=== PATIENT | female | born 2000 | race Caucasian/White ===

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

== ENCOUNTER 2022-10-09 00:09 | Emergency (ER) | payer BC, MEDICAID ==
[~2022-10-09] VITALS: Ht 160 cm; Wt 59.0 kg
[2022-10-09 00:26] VITALS: BP 111/77
--- NOTE | 2022-10-09 00:30 | NUR ---
TO BED AMBULATORY
[2022-10-09] MEDS ORDERED: NACL 0.9% 1,000 ML IV SCH (00:35)
[2022-10-09] MEDS ORDERED: ONDANSETRON 4 MG/2 ML VIAL IVP ONE (00:35)
[2022-10-09] MEDS ORDERED: ONDANSETRON 4 MG/2 ML VIAL ONE (00:38)
[2022-10-09 00:57] LABS: BASOPHILS # (AUTO) 0.1 K/uL (0.00-0.22); BASOPHILS % (AUTO) 0.8 % (0.0-2.0); EOSINOPHILS # (AUTO) 0.1 K/uL (0-0.4); EOSINOPHILS % (AUTO) 1.5 % (0.0-4.0); HEMOGLOBIN 10.4 g/dL (12.0-16.0); LYMPHOCYTES # (AUTO) 1.8 K/uL (2.5-16.5); LYMPHOCYTES % (AUTO) 23.4 % (20.5-51.1); MEAN CORPUSCULAR HEMOGLOBIN 23 pg (27-31); MEAN CORPUSCULAR HGB CONC 31 g/dL (33-37); MEAN CORPUSCULAR VOLUME 74.4 fL (80-94); MONOCYTES # (AUTO) 0.9 K/uL (0.8-1.0); NEUTROPHILS # (AUTO) 4.9 K/uL (1.8-7.7); NEUTROPHILS % (AUTO) 62.3 % (42.2-75.2); PLATELET COUNT (AUTO) 271 K/uL (140-450); RED BLOOD CELL COUNT(AUTO) 4.44 MIL/uL (4.20-5.40); RED CELL DISTRIBUTION WIDTH 16.6 % (11.6-13.7); WHITE BLOOD COUNT (AUTO) 7.8 K/uL (4.8-10.8)
[2022-10-09 01:13] LABS: ALBUMIN 3.2 g/dL (3.4-5.0); ANION GAP 10.1 (8-16); CARBON DIOXIDE 27.3 mmol/L (21-32); CREATININE 0.6 mg/dL (0.6-1.3); POTASSIUM 3.4 mmol/L (3.5-5.1); TOTAL BILIRUBIN 0.2 mg/dL (0.0-1.0)
[2022-10-09 01:20] LABS: APPEARANCE,URINE CLEAR (CLEAR); BILIRUBIN,URINE NEGATIVE (NEGATIVE); BLOOD, URINE 3+ (NEGATIVE); COLOR,URINE YELLOW (YELLOW); LEUKOCYTE ESTERASE ,URINE NEGATIVE (NEGATIVE); NITRITE, URINE NEGATIVE (NEGATIVE); UGLUCOSE NEGATIVE (NEGATIVE)
--- NOTE | 2022-10-09 01:24 | NUR ---
Dr. Shelley examining patient.
--- NOTE | 2022-10-09 01:25 | NUR ---
Patient lying in bed, A/Ox4, chest rise and fall symmetrical, no s/s of distress. Addendum: 10/09/22 at 0628 by [id number] Patient lying in bed, A/Ox4, chest rise and fall symmetrical, no s/s of distress, patient on monitor.
[2022-10-09 01:28] LABS: WBC,URINE 0-5 /HPF (0-5)
--- NOTE | 2022-10-09 01:46 | NUR ---
PT TAKEN TO CT
--- NOTE | 2022-10-09 01:57 | NUR ---
PT RETURN FROM CT
--- NOTE | 2022-10-09 02:10 | NUR ---
Patient lying in bed, A/Ox4, chest rise and fall symmetrical, no s/s of distress. Addendum: 10/09/22 at 0628 by [email or web address] Patient lying in bed, A/Ox4, chest rise and fall symmetrical, no s/s of distress, patient on monitor.
[2022-10-09] MEDS ORDERED: FAMOTIDINE 20 MG/2 ML VIAL IVP ONE (02:40)
[2022-10-09] MEDS ORDERED: DICYCLOMINE 10 MG CAP PO ONE (02:40)
--- NOTE | 2022-10-09 04:15 | NUR ---
Patient lying in bed, A/Ox4, chest rise and fall symmetrical, no s/s of distress. Addendum: 10/09/22 at 0628 by [id number] Patient lying in bed, A/Ox4, chest rise and fall symmetrical, no s/s of distress, patient on monitor.
[2022-10-09] MEDS ORDERED: KETOROLAC 15 MG/ML VIAL IVP ONE (04:50)
[2022-10-09] MEDS ORDERED: METR-435 PO (06:15)
[2022-10-09] MEDS ORDERED: CIPR500T4 PO (06:15)
--- NOTE | 2022-10-09 06:17 | NUR ---
ecological technical officer at bedside with patient.
--- NOTE | 2022-10-09 06:17 | NUR ---
Patient lying in bed, A/Ox4, chest rise and fall symmetrical, no s/s of distress. Addendum: 10/09/22 at 0628 by [email or web address] Patient lying in bed, A/Ox4, chest rise and fall symmetrical, no s/s of distress, patient on monitor.
--- NOTE | 2022-10-09 07:09 | NUR ---
Patient lying in bed, A/Ox4, chest rise and fall symmetrical, no s/s of distress, patient on monitor. ER physician at bedside with patient.
[2022-10-09 07:24] VITALS: BP 105/74
== END 2022-10-09 07:25 | disposition home or self-care (01) ==
LOC: MED 00:09
DX: K62.89 Other specified diseases of anus and rectum (principal); N30.00 Acute cystitis without hematuria; K92.2 Gastrointestinal hemorrhage, unspecified; R19.00 Intra-abdominal and pelvic swelling, mass and lump, unspecified site
CPT/HCPCS: 36415; 74177; 76830; 80053; 81001; 81025; 83690; 84703; 85025; 87086; 96361; 96374; 96375; 99285; J1885; J2405; J3490; J7030; Q0092; Q9967

== ENCOUNTER 2023-02-16 20:03 | Emergency (ER) | payer BC ==
[~2023-02-16] VITALS: Ht 160 cm; Wt 59.0 kg
[~2023-02-16 20:03] MED LIST: CIPR500T4 PO; METR-435 PO
[2023-02-16 20:54] VITALS: BP 118/58
--- NOTE | 2023-02-16 20:57 | NUR ---
TO LOBBY A/W BED AMBULATORY
[2023-02-16] MEDS ORDERED: LIDOCAINE 1% 500 MG/ 50 ML VIAL INJ ONE (22:25)
--- NOTE | 2023-02-16 22:25 | NUR ---
PT TAKEN TO BED 11
--- NOTE | 2023-02-16 22:26 | NUR ---
Patient resting in bed, A/Ox4, chest rise and fall symmetrical, no s/s of distress, patient on monitor.
[2023-02-16] MEDS ORDERED: LIDOCAINE MPF 1% 5 ML ONE (22:31)
--- NOTE | 2023-02-16 22:42 | NUR ---
Dr. Shelley examining patient.
--- NOTE | 2023-02-16 22:45 | NUR ---
Dr. Shelley at bedside performing I&D. Patient tolerating procedure well.
[2023-02-16] MEDS ORDERED: CEPH-588 PO (22:53)
[2023-02-16] MEDS ORDERED: BACITRACIN OINT 500 UNITS/GM PKT TP ONE ×2 (22:55)
[2023-02-16 22:56] VITALS: BP 108/67
--- NOTE | 2023-02-16 23:05 | NUR ---
Patient resting in bed, A/Ox4, chest rise and fall symmetrical, no c/o pain or s/s of distress, patient on monitor.
== END 2023-02-16 23:05 | disposition home or self-care (01) ==
LOC: MED 20:03
DX: L03.012 Cellulitis of left finger (principal); Z79.899 Other long term (current) drug therapy
CPT/HCPCS: 26011; 99284; J2001; 26010